=== PATIENT | female | born 1990 | race African-American/Black ===

== ENCOUNTER 2017-03-31 16:59 | Emergency (ER) | payer OTHER, SELFPAY | END 2017-03-31 18:45 | disposition home or self-care (01) | LOC: ERS 16:59 | DX: S39.012A Strain of muscle, fascia and tendon of lower back, initial encounter (principal); V43.52XA Car driver injured in collision with other type car in traffic accident, initial encounter | CPT/HCPCS: 99283 ==

== ENCOUNTER 2022-01-18 19:28 | Emergency (ER) | payer OTHER, SELFPAY | END 2022-01-18 20:30 | disposition home or self-care (01) | LOC: ERS 19:28 | DX: U07.1 COVID-19 (principal) | CPT/HCPCS: 99283; U0003; U0005 ==

== ENCOUNTER 2023-04-28 00:51 | Emergency (ER) | payer MEDICAID, SELFPAY | END 2023-04-28 02:00 | disposition home or self-care (01) | LOC: ERS 00:51 | DX: J02.9 Acute pharyngitis, unspecified (principal) | CPT/HCPCS: 87081; 87430; 99283 ==

== ENCOUNTER 2023-06-20 09:23 | Emergency (ER) | payer SELFPAY ==
[2023-06-20] MEDS ORDERED: Cyclobenzaprine 10 MG TAB ONE (09:38)
[2023-06-20] MEDS ORDERED: Naproxen 500 MG TAB ONE (09:39)
[2023-06-20] MEDS ORDERED: Lidocaine 4% Patch TD SCH (10:00)
[2023-06-20] MEDS ORDERED: Transdermal Patch Removal TOP SCH (22:00)
== END 2023-06-20 11:10 | disposition home or self-care (01) ==
LOC: ERS 09:23
DX: T14.8XXA Other injury of unspecified body region, initial encounter (principal); M54.6 Pain in thoracic spine; M62.838 Other muscle spasm; F17.290 Nicotine dependence, other tobacco product, uncomplicated; X50.9XXA Other and unspecified overexertion or strenuous movements or postures, initial encounter; Y93.89 Activity, other specified
CPT/HCPCS: 99283

== ENCOUNTER 2024-03-26 17:07 | Emergency (ER) | payer SELFPAY ==
[2024-03-26] MEDS ORDERED: Ketorolac Tromethamine 30 MG (1 mL) VIAL ONE (18:12)
[2024-03-26] MEDS ORDERED: Ondansetron PF 4 MG/2 ML Vial ONE (18:12)
[2024-03-26 18:30] LABS: #Basophils 0.03 10x3/uL (0.0-0.2); %Basophils 0.3 % (0.0-1.0); %Eosinophils 1.2 % (0.0-10.0); %Lymphocytes 19.8 % (21.0-51.0); %Monocytes 7.4 % (0.0-10.0); %Neutrophils 71.1 % (42.0-75.0); Hematocrit 33.4 % (36.0-47.0); Hemoglobin 10.6 g/dL (12.0-16.0); Mean Corpuscular HGB CONC 31.7 g/dL (32.0-36.0); Mean Corpuscular Hemoglobin 26.2 pg (27.0-31.0); Mean Corpuscular Volume 82.5 fL (78.0-98.0); Mean Platelet Volume 9.3 fL (7.4-10.4); Platelet Count 288 10x3/uL (130-400); RBC Distribution Width 14.5 % (11.5-14.5); Red Blood Cell (RBC) Count 4.05 mill/uL (4.20-5.40)
[2024-03-26 18:42] LABS: BHCG - Serum Negative (NEGATIVE); Pregs Control Background? CLEAR/WHITE (CLR/WHITE); Pregs Control Bar Appear? YES (CONTROL BAR)
[2024-03-26 18:46] LABS: Bilirubin Negative (Negative); Blood, Urine 2+ (Negative); CAUTI Indications for Culture Pelvic or flank pain; Clarity Clear (Clear); Glucose, Urine (Dipstick) Normal (Negative); Ketone, Urine 20 mg/dL (Negative); Leukocyte 25 Leu/uL (Negative); Nitrite Negative (Negative); Protein, Urine (Dipstick) Negative (Neg-Trace); Specific Gravity, Urine 1.015 (1.002-1.036); Squamous Epithelial 0-3 HPF (0-3)
[2024-03-26 18:49] LABS: ALT (SGPT) 13 U/L (8-55); AST (SGOT) 19 U/L (5-34); Albumin 3.4 g/dL (3.5-5.0); Alkaline Phosphatase 73 U/L (40-110); Anion Gap 12 mmol/L (10-20); BUN (Urea Nitrogen) 9 mg/dL (7.0-18.7); Bilirubin, Total 0.4 mg/dL (0.2-1.2); Calc. Creatinine Clearance 0 mL/min (70-130); Calcium 9.2 mg/dL (7.8-10.44); Carbon Dioxide 25 mmol/L (22-29); Chloride 103 mmol/L (98-107); Estimated GFR 101; Globulin 4.3 g/dL (2.4-3.5); Glucose 88 mg/dL (70-105); Lipase 15 U/L (8-78); Potassium 3.7 mmol/L (3.5-5.1); Protein, Total 7.7 g/dL (6.0-8.3); Sodium 136 mmol/L (136-145)
[2024-03-26] MEDS ORDERED: Famotidine/PF 20 mg/2ml Vial ONE (18:53)
[2024-03-26 19:01] LABS: Trichomonas/HPF 2+ HPF (None Seen)
[2024-03-26 19:04] LABS: Bacteria/HPF Rare-Few HPF (None Seen)
[2024-03-26 19:05] LABS: Urine Culture Reflex No No
== END 2024-03-26 20:11 | disposition home or self-care (01) ==
LOC: ERS 17:07
DX: A59.01 Trichomonal vulvovaginitis (principal); R10.13 Epigastric pain; F17.290 Nicotine dependence, other tobacco product, uncomplicated
CPT/HCPCS: 76705; 80053; 81001; 83690; 84703; 85025; 96374; 96375; J1885; J2405; J3490